=== PATIENT | female | born 1935 | race Caucasian/White ===

== ENCOUNTER 2017-06-07 10:03 | Day surgery (SDC) | payer MEDICARE ==
[2017-06-06 15:21] VITALS: BMI 19.8
[2017-06-07] MEDS ORDERED: Lidocaine 1% PF 5 ML VIAL ONE (17:03)
[2017-06-07] MEDS ORDERED: Propofol 200 MG/20 ML VIAL ONE (17:03)
--- NOTE | 2017-06-08 12:34 | OP ---
DATE OF PROCEDURE: 06/07/2017 SURGEON: Derrek Gonzalez M.D. PROCEDURES: EGD and colonoscopy with polypectomy. PREOPERATIVE DIAGNOSIS: 1. Personal history of colon polyps. 2. Weight loss despite increased appetite. 3. New diagnosis of hyperthyroidism. POSTOPERATIVE DIAGNOSES: 1. Normal esophagogastroduodenoscopy. 2. Colonoscopy with descending colon polyps, 1. 3. Hiatal hernia. PROCEDURE IN DETAIL: After the patient was informed of the risks, benefits, possible complications o f endoscopy including perforation, bleeding, reaction to medication, and aspiration, informed consent was obtained. The patient was sedated. Once she was comfortable at the bite block was placed in in cisural orifice. Once she was comfortable endoscope was advanced through the esophagus, stomach, sec ond and third portions of the duodenum. A small hiatal hernia was noted. There were no bleeding sit es identified or erythema. The stomach was otherwise normal, so was the duodenum and second and thir d portions. There was no evidence of celiac disease. There were no findings to explain weight loss. Retroflexed views were normal. The patient was turned in the room and a rectal exam was performed. The endoscope was advanced throu gh the colon to the cecum which was identified by the ileocecal valve and appendiceal orifice. The s cope was then slowly removed with good visualization of the mucosa. There was a descending colon brayden yp identified and removed by snare polypectomy and submitted to Pathology. No other polyps or lesion s were noted. Retroflexed views in the rectum were normal. The scope was then removed. The patient was brought to recovery room in stable condition.
== END 2017-06-07 14:40 | disposition home or self-care (01) ==
LOC: SDC 10:03
PROVIDERS: ATTEND Internal Medicine Gastroenterology
PROC: 0DBM8ZX Excision of Descending Colon, Via Natural or Artificial Opening Endoscopic, Diagnostic (ICD-10-PCS; principal; 2017-06-07)
PROC: 0DJ08ZZ Inspection of Upper Intestinal Tract, Via Natural or Artificial Opening Endoscopic (ICD-10-PCS; 2017-06-07)
DX: D12.4 Benign neoplasm of descending colon (principal); E05.90 Thyrotoxicosis, unspecified without thyrotoxic crisis or storm; R63.4 Abnormal weight loss; K44.9 Diaphragmatic hernia without obstruction or gangrene; Z68.1 Body mass index [BMI] 19.9 or less, adult; Z79.82 Long term (current) use of aspirin; Z79.899 Other long term (current) drug therapy; Z88.0 Allergy status to penicillin; Z88.5 Allergy status to narcotic agent; Z88.1 Allergy status to other antibiotic agents; Z88.6 Allergy status to analgesic agent; Z96.1 Presence of intraocular lens; Z95.810 Presence of automatic (implantable) cardiac defibrillator; Z95.818 Presence of other cardiac implants and grafts; Z90.710 Acquired absence of both cervix and uterus; Z90.49 Acquired absence of other specified parts of digestive tract; Z90.79 Acquired absence of other genital organ(s); Z90.722 Acquired absence of ovaries, bilateral; Z98.890 Other specified postprocedural states; Z86.010 Personal history of colon polyps
CPT/HCPCS: 88305; J2001; J2704